=== PATIENT | female | born 1950 | race Caucasian/White ===

== ENCOUNTER 2020-02-05 08:43 | Emergency (ER) | payer MEDICARE ==
[~2020-02-05] VITALS: Ht 160 cm; Wt 79.5 kg
[2020-02-05] MEDS ORDERED: BUPR75 PO (08:52)
[2020-02-05] MEDS ORDERED: ACYC200C PO (08:52)
[2020-02-05] MEDS ORDERED: METO-558 PO (08:52)
[2020-02-05] MEDS ORDERED: HYDR-1475 PO (08:52)
[2020-02-05] MEDS ORDERED: TRAZ-252 PO (08:52)
[2020-02-05] MEDS ORDERED: SERT100T12 PO (08:52)
[2020-02-05] MEDS ORDERED: SPIR25 PO (08:52)
[2020-02-05] MEDS ORDERED: DONE10TA8 PO (08:52)
[2020-02-05] MEDS ORDERED: LISI-662 PO (08:52)
[2020-02-05] MEDS ORDERED: SODIUM CHLORIDE 0.9% 1,000 ML IV ONE (09:15)
[2020-02-05 09:49] LABS: BASOPHILS % (AUTO) 0.9 % (0.0-2.0); EOSINOPHILS % (AUTO) 3.3 % (1.0-6.0); HEMOGLOBIN 11.9 g/dL (12.0-16.0); LYMPHOCYTES # (AUTO) 1.1 K/uL (1.0-4.8); LYMPHOCYTES % (AUTO) 23.1 % (22.0-44.0); MEAN CORPUSCULAR HEMOGLOBIN 31.8 pg (26.0-34.0); MEAN CORPUSCULAR HGB CONC 33.1 G/dL (31.0-37.0); MEAN CORPUSCULAR VOLUME 96 fL (80-100); MONOCYTES # (AUTO) 0.4 K/uL (0.1-1.0); MONOCYTES % (AUTO) 8.6 % (2.0-9.0); NEUTROPHILS # (AUTO) 2.9 K/uL (1.8-7.7); NEUTROPHILS % (AUTO) 64.1 % (40.0-70.0); PLATELET COUNT (AUTO) 233 K/uL (150-450); RED BLOOD CELL COUNT(AUTO) 3.74 MIL/uL (4.00-5.20); RED CELL DISTRIBUTION WIDTH 14.2 % (11.5-14.5)
[2020-02-05 10:06] LABS: CALCIUM, TOTAL 9.2 mg/dL (8.8-10.5); CREATININE 0.97 mg/dL (0.60-1.30); POTASSIUM 3.4 mmol/L (3.5-5.1)
[2020-02-05 10:09] LABS: ALBUMIN 3.2 g/dL (3.4-5.0); BILIRUBIN,TOTAL 0.3 mg/dL (0.1-1.0); TOTAL PROTEIN, SERUM 7.2 g/dL (6.4-8.2)
[2020-02-05] MEDS ORDERED: POTASSIUM CHLORIDE 20 MEQ ER TABLET PO ONE (10:30)
[2020-02-05 10:31] VITALS: BP 183/78
== END 2020-02-05 11:05 | disposition home or self-care (01) ==
LOC: EMS 08:58
DX: K62.5 Hemorrhage of anus and rectum (principal); E87.6 Hypokalemia; F32.9 Major depressive disorder, single episode, unspecified; I10 Essential (primary) hypertension; Z88.5 Allergy status to narcotic agent; Z79.899 Other long term (current) drug therapy
CPT/HCPCS: 36415; 80053; 82271; 85025; 86850; 86900; 86901; 96360; 99283; J7030